=== PATIENT | male | born 1970 | race Caucasian/White ===

== ENCOUNTER 2016-07-15 21:18 | Emergency (ER) | payer MEDICARE, MEDICAID ==
--- NOTE | 2016-07-15 21:24 | NUR ---
LOOKED FOR PT IN WAITING ROOM AND NOT FOUND.
== END 2016-07-15 21:41 | disposition left against medical advice (07) ==
LOC: ER 21:18
DX: Z53.21 Procedure and treatment not carried out due to patient leaving prior to being seen by health care provider (principal)